=== PATIENT | male | born 1960 | race Caucasian/White ===

== ENCOUNTER 2022-10-23 10:09 | Observation (INO) | payer OTHER ==
--- NOTE | 2022-10-23 10:26 | ERPHSYRPT ---
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 Patient and his spouse state the patient has not hit his head in the recent past. Additional, independent history was obtained from the patient's spouse and the paramedics. Patient's about states that this morning, the patient woke up and things were normal. However, suddenly the patient fell and started having seizure-like activity that was generalized. Patient has never had anything like this before per his report or per the report of his spouse. Patient has been out of his hydrocodone and Xanax medication for at least 3 to 4 days. They are supposed to receive the medication today from his pharmacy. Patient denies illicit drug use. Patient denies alcohol use. Patient denies chest pain. He denies shortness of breath. He denies abdominal pain. He has not had any vomiting or diarrhea. Patient, at the time of this evaluation appears awake and alert. Patient has a history of hyperlipidemia, chronic left leg pain and has anxiety issues on Xanax daily Timing/Duration: today Severity: mild Character of Deficits: none Deficits: no difficulties Baseline/Normal Cognition: alert oriented x 3 Current Cognition: alert oriented x 3 Baseline Gait: walks w/o assistance Associated Symptoms: seizures, No confusion, No loss of consciousness Allergies/Adverse Reactions: Penicillins Allergy (Verified 10/23/22 10:13) Sulfa (Sulfonamide Antibiotics) Allergy (Verified 10/23/22 10:13) Home Medications: ALPRAZolam [Alprazolam] 1 tab PO CLARIFY 10/23/22 [History] Atorvastatin Calcium [Lipitor] 1 tab PO CLARIFY 10/23/22 [History] Hydrocodone/Acetaminophen [Hydrocodone-Acetamin 5-325 mg] 1 tab PO CLARIFY 10/23/22 [History] Travel Risk - International Travel Have you traveled outside of the country in past 3 weeks: No - Coronavirus Screening Are you exhibiting any of the following symptoms?: No Close contact with a COVID-19 positive Pt in past 14-21 Days: No - Review of Systems Constitutional: No Symptoms Eyes: No Symptoms Ears, Nose, & Throat: No Symptoms Respiratory: No Symptoms Cardiac: No Symptoms Abdominal/Gastrointestinal: No Symptoms Genitourinary Symptoms: No Symptoms Musculoskeletal: No Symptoms Skin: No Symptoms Neurological: Seizure, No Headache Psychological: No Symptoms Endocrine: No Symptoms Hematologic/Lymphatic: No Symptoms Immunological/Allergic: No Symptoms All Other Systems: Reviewed and Negative - Past Medical History Pertinent Past Medical History: Yes - Nursing Vital Signs Nursing Vital Signs: Initial Vital Signs Pulse Rate 83 10/23/22 10:11 Respiratory Rate 17 10/23/22 10:11 Blood Pressure 158/87 10/23/22 10:11 O2 Sat by Pulse Oximetry 94 L 10/23/22 10:11 Pain Scale Pain Intensity 0 - Jason Coma Scale Best Eye Response (Jason): (4) open spontaneously Best Verbal Response ([place]): (5) oriented Best Motor Response (Jason): (6) obeys commands [place] Total: 15 - Physical Exam General Appearance: no apparent distress, alert, anxiety, cachetic Eye Exam: bilateral eye: normal inspection, PERRL, EOMI Ears, Nose, Throat Exam: moist mucous membranes, other (Generalized poor dentition) Neck Exam: normal inspection, non-tender, supple, full range of motion Respiratory: normal breath sounds, lungs clear, respiratory distress, airway intact, No chest tenderness Cardiovascular: regular rate/rhythm, normal heart sounds, normal peripheral pulses Gastrointestinal: soft, normal bowel sounds, No tenderness Rectal Exam: not done Back Exam: normal inspection, normal range of motion, No CVA tenderness, No vertebral tenderness Extremity Exam: normal inspection, normal range of motion, pelvis stable Mental Status: alert, oriented x 3, cooperative desizing machine back tender Exam: normal hearing, normal speech, PERRL, tongue midline Coordination/Gait: normal finger to nose Motor/Sensory: no motor deficit, no sensory deficit Skin Exam: normal color, warm, dry SpO2 Interpretation: normal O2 Delivery: Room Air - Course Nursing assessment & vital signs reviewed: Yes EKG Interpreted by Me: RATE, Sinus Rhythm, NORMAL AXIS, NORMAL INTERVALS, NORMAL QRS, Non-specific ST Changes, Other (No comparison twelve-lead EKG. There is no acute ischemic changes on today's twelve-lead EKG.) Ordered Tests: Active Orders 24 hr Category Date Time Status Duty Engineer STAT Care 10/23/22 10:42 Active Clean Catch Urine Specimen STAT Care 10/23/22 10:41 Active EKG-ER Only STAT Care 10/23/22 10:41 Active IV Insertion STAT Care 10/23/22 10:41 Active Pulse Oximetry (ED) STAT Care 10/23/22 10:41 Active HEAD WITHOUT CONTRAST [CT] Stat Exams 10/23/22 10:42 Completed ACETAMINOPHEN Stat Lab 10/23/22 10:50 Completed CBC W DIFF Stat Lab 10/23/22 10:50 Completed CMP Stat Lab 10/23/22 10:50 Completed ETHYL ALCOHOL Stat Lab 10/23/22 10:50 Completed POTASSIUM, URINE RANDOM Stat Lab 10/23/22 11:19 Ordered SALICYLATE Stat Lab 10/23/22 10:50 Completed Sodium, Urine Stat Lab 10/23/22 11:18 Ordered UA W/RFX UR CULTURE Stat Lab 10/23/22 10:41 Ordered Urine Triage Profile Stat Lab 10/23/22 10:41 Ordered Transfer Order Routine Transfer 10/23/22 Ordered Medication Summary Generic Name Dose Route Start Last Admin Trade Name Freq PRN Reason Stop Dose Admin Sodium Chloride 1,000 mls @ 100 mls/hr 10/23/22 10:45 10/23/22 10:45 Sodium Chloride 0.9% 1000 Ml IV 11/22/22 10:44 100 mls/hr .Q10H TEETEE Administration Discontinued Medications Generic Name Dose Route Start Last Admin Trade Name Freq PRN Reason Stop Dose Admin Morphine Sulfate 2 mg 10/23/22 11:51 Morphine Sulfate 2 Mg/Ml Inj IV 10/23/22 11:52 STAT ONE Ondansetron HCl 4 mg 10/23/22 10:41 10/23/22 10:45 Ondansetron Hcl 4 Mg/2 Ml Vial IV 10/23/22 10:42 4 mg STAT ONE Administration Ondansetron HCl Confirm 10/23/22 10:44 Ondansetron Hcl 4 Mg/2 Ml Vial Administered 10/23/22 10:45 Dose 4 mg .ROUTE .STK-MED ONE Lab/Rad Data: Laboratory Result Diagrams 10/23/22 10:50 10/23/22 10:50 Laboratory Results 10/23/22 10/23/22 Range/Units 10:50 10:50 WBC 12.2 H (4.0-10.5) x10^3/uL RBC 4.63 (4.1-5.6) x10^6/uL Hgb 14.6 (12.5-18.0) g/dL Hct 40.5 L (42-50) % MCV 87.5 (78-100) fL MCH 31.5 (26-32) pg MCHC 36.0 (32-36) g/dL RDW 12.0 (11.5-14.0) % Plt Count 315 (150-450) x10^3/uL MPV 8.1 (7.5-11.0) fL Gran % 77.8 H (36.0-66.0) % Immature Gran % (Auto) 0.7 H (0.00-0.4) % Nucleat RBC Rel Count 0.0 (0.00-0.1) % Eos # (Auto) 0.11 (0-0.5) x10^3/uL Immature Gran # (Auto) 0.08 H (0.00-0.03) x10^3u/L Absolute Lymphs (auto) 1.66 (1.0-4.6) x10^3/uL Absolute Monos (auto) 0.83 (0.0-1.3) x10^3/uL Absolute Nucleated RBC 0.00 (0.00-0.01) x10^3u/L Lymphocytes % 13.6 L (24.0-44.0) % Monocytes % 6.8 (0.0-12.0) % Eosinophils % 0.9 (0.00-5.0) % Basophils % 0.2 (0.0-0.4) % Absolute Granulocytes 9.49 H (1.4-6.9) x10^3/uL Basophils # 0.03 (0-0.4) x10^3/uL Sodium 118 L* (137-145) mmol/L Potassium 3.4 L (3.5-5.1) mmol/L Chloride 84 L (98-107) mmol/L Carbon Dioxide 23 (22-30) mmol/L Anion Gap 14.6 (5-15) MEQ/L BUN 6 L (9-20) mg/dL Creatinine 0.52 L (0.66-1.25) mg/dL Estimated GFR > 60.0 ML/MIN Glucose 106 (74-106) mg/dL Calcium 8.1 L (8.4-10.2) mg/dL Total Bilirubin 0.70 (0.2-1.3) mg/dL AST 30 (17-59) U/L ALT 20 (0-50) U/L Alkaline Phosphatase 105 (38-126) U/L Serum Total Protein 6.4 (6.3-8.2) g/dL Albumin 3.7 (3.5-5.0) g/dL Salicylates < 1.0 L (2-20) mg/dL Acetaminophen < 10 L (10-30) ug/ml Ethyl Alcohol < 10 (0-10) mg/dL - Progress Progress: improved, re-examined Progress Note: 10/23/22 11:52 CT scan of the head without contrast shows a nonacute senile brain. This patient's medical issue is 1 of high complexity. Level of complexity in the work-up performed is based on review of the patient's past medical history, review of the patient's medication list, review of the patient's drug allergy list, history of present illness and physical findings on examination. The work-up performed includes CAT scan of the head without contrast, CBC, CMP, urinalysis, alcohol level, urine triage profile, acetaminophen level, salicylate level, twelve-lead EKG. I reviewed the results of the work-up including the impression of the radiology interpreted CT scan of the head. Patient has been out of his anxiety and pain medicine for 3 to 4 days. He had stopped these abruptly because he had no more medication. More importantly, his sodium is 118. I think all of these findings and issues contributed to his new onset seizure. I spoke with the telehospitalist, Dr. Guzman. He agrees the patient to be placed in observation and will undergo further evaluation and testing. I ordered a urine osmolality, urine potassium and urine sodium level. I will repeat labs in the morning and we will infuse normal saline solution and him. I will also provide him with as needed, low-dose Ativan and morphine intravenously to help treat his chronic pain and anxiety issues. Counseled pt/family regarding: lab results, diagnosis, need for follow-up, rad results Medical Desision Making - Independent Historian Additional History obtained from: Spouse - Discussion of managment Care discussed with:: hospitalist (Dr. Guzman) Reviewed:: Test results, Need for additional workup Agreed on:: Treatment plan, place in obs Will see patient: in hospital - Diagnostic Testing Diagnostic test were ordered, analyzed, and reviewed by me: Yes Radiological Interpretation: Reviewed by me, Teleradiologist Report - Risk of complications The pt has a high risk of morbidity or mortality based on: Decision regarding hospitilization or escalation of hosp level of care - Departure Departure Disposition: Observation Clinical Impression: New onset seizure, Hyponatremia Condition: Stable Critical Care Time: No Referrals: DOCTOR,NO FAMILY [Primary Care Provider] - Follow up/PCP as directed
[2022-10-23] MEDS ORDERED: Zofran 4 MG/2 ML VIAL IV ONE (10:41)
[2022-10-23] MEDS ORDERED: Sodium Chloride 0.9% 1000 ML 1,000 ML ONE (10:44)
[2022-10-23] MEDS ORDERED: Zofran 4 MG/2 ML VIAL ONE (10:44)
[2022-10-23] MEDS ORDERED: Sodium Chloride 0.9% 1000 ML 1,000 ML IV SCH ×2 (10:45→13:54)
[2022-10-23 10:57] LABS: Absolute Neutrophil Ct (ANC) 9.49 x10^3/uL (1.4-6.9); BASOPHIL % 0.2 % (0.0-0.4); Basophil (Absolute #) 0.03 x10^3/uL (0-0.4); Eosinophil % 0.9 % (0.00-5.0); Eosinophil (Absolute #) 0.11 x10^3/uL (0-0.5); Hematocrit 40.5 % (42-50); Hemoglobin 14.6 g/dL (12.5-18.0); IMMATURE GRAN # 0.08 x10^3u/L (0.00-0.03); IMMATURE GRAN % 0.7 % (0.00-0.4); Lymphocyte (Absolute #) 1.66 x10^3/uL (1.0-4.6); Lymphocytes % 13.6 % (24.0-44.0); Mean Cell Volume 87.5 fL (78-100); Mean Corpuscular Hemoglobin 31.5 pg (26-32); Mean Platelet Volume 8.1 fL (7.5-11.0); Monocyte (Absolute #) 0.83 x10^3/uL (0.0-1.3); Monocytes % 6.8 % (0.0-12.0); Neutrophil % 77.8 % (36.0-66.0); Platelet Count 315 x10^3/uL (150-450); Red Blood Count 4.63 x10^6/uL (4.1-5.6); White Blood Count 12.2 x10^3/uL (4.0-10.5)
[2022-10-23 11:10] LABS: ACETAMINOPHEN < 10 ug/ml (10-30); ALBUMIN 3.7 g/dL (3.5-5.0); ALKALINE PHOSPHATASE 105 U/L (38-126); ANION GAP 14.6 MEQ/L (5-15); BLOOD UREA NITROGEN 6 mg/dL (9-20); CHLORIDE 84 mmol/L (98-107); Calcium 8.1 mg/dL (8.4-10.2); Carbon Dioxide 23 mmol/L (22-30); Creatinine 1 0.52 mg/dL (0.66-1.25); EST GLOMERULAR FILTRATION RATE > 60.0 ML/MIN; ETHYL ALCOHOL < 10 mg/dL (0-10); Glucose 106 mg/dL (74-106); Potassium 3.4 mmol/L (3.5-5.1); SALICYLATE < 1.0 mg/dL (2-20); SGOT/AST 30 U/L (17-59); SGPT/ALT 20 U/L (0-50); Total Protein 6.4 g/dL (6.3-8.2)
[2022-10-23 11:17] LABS: SODIUM 118 mmol/L (137-145)
--- NOTE | 2022-10-23 11:34 | XRAY ---
Indication: New one since seizure. Multiple contiguous axial images obtained through the head without contrast. Comparison: None Age-appropriate global atrophy with minimal periventricular degenerative micro-ischemia bilaterally. No acute intracranial hemorrhage, abnormal extra-axial fluid collection, or mass effect. Fourth ventricle is midline without hydrocephalus. Bony calvarium intact. Visualized paranasal sinuses and mastoid air cells are clear. Impression: Nonacute senile brain.
[2022-10-23] MEDS ORDERED: MORPHINE SULFATE 2 MG INJ IV ONE (11:51)
[2022-10-23] MEDS ORDERED: MORPHINE SULFATE 2 MG INJ ONE (12:07)
[2022-10-23] MEDS ORDERED: MORPHINE SULFATE 4 MG INJ IV ONE (12:46)
[2022-10-23] MEDS ORDERED: MORPHINE SULFATE 4 MG INJ ONE (12:50)
[2022-10-23 13:25] LABS: Appearance Clear (Clear); Bacteria None Seen /HPF (None Seen); Bilirubin Negative (Negative); Blood Negative (Negative); Epithelial Cells None Seen /HPF (None Seen); Glucose, Urine 100 mg/dL (Negative); Hyaline Casts NONE SEEN /LPF (0-2); Ketones Trace (Negative); Leukocyte Esterase Negative (Negative); Nitrite Negative (Negative); Ph 6.5 (4.6-8.0); Protein,Urine Dip Negative (Negative); RBC 0-2 /HPF (0-5); WBC 0-2 /HPF (0-5)
[2022-10-23 13:28] LABS: ADD URINE CULTURE? NO (NO)
[2022-10-23 13:43] LABS: Amphetamine,Urine NEGATIVE (NEGATIVE); Barbiturate,Urine NEGATIVE (NEGATIVE); Benzodiazepine,Urine NEGATIVE (NEGATIVE); Cocaine,Urine NEGATIVE (NEGATIVE); Methadone,Urine NEGATIVE (NEGATIVE); Opiate,Urine POSITIVE (NEGATIVE); PCP,Urine NEGATIVE (NEGATIVE); THC,Urine NEGATIVE (NEGATIVE)
[2022-10-23] MEDS ORDERED: MORPHINE SULFATE 2 MG INJ IV PRN (13:54)
[2022-10-23] MEDS ORDERED: Zofran 4 MG/2 ML VIAL IV PRN (13:54)
[2022-10-23] MEDS ORDERED: Ativan 2 MG/1 ML VIAL IV PRN (13:54)
[2022-10-23] MEDS: TYLENOL 325 MG PO PRN (14:07)
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
[2022-10-24] MEDS: TYLENOL 325 MG PO PRN (00:46)
[2022-10-24 05:13] LABS: Absolute Neutrophil Ct (ANC) 7.07 x10^3/uL (1.4-6.9); BASOPHIL % 0.4 % (0.0-0.4); Basophil (Absolute #) 0.04 x10^3/uL (0-0.4); Eosinophil % 1.7 % (0.00-5.0); Eosinophil (Absolute #) 0.17 x10^3/uL (0-0.5); Hematocrit 38.5 % (42-50); Hemoglobin 13.6 g/dL (12.5-18.0); IMMATURE GRAN # 0.03 x10^3u/L (0.00-0.03); IMMATURE GRAN % 0.3 % (0.00-0.4); Lymphocyte (Absolute #) 2.11 x10^3/uL (1.0-4.6); Lymphocytes % 20.5 % (24.0-44.0); Mean Cell Volume 88.3 fL (78-100); Mean Corpuscular Hemoglobin 31.2 pg (26-32); Mean Corpuscular Hgb Concent. 35.3 g/dL (32-36); Mean Platelet Volume 8.5 fL (7.5-11.0); Monocyte (Absolute #) 0.87 x10^3/uL (0.0-1.3); Monocytes % 8.5 % (0.0-12.0); Neutrophil % 68.6 % (36.0-66.0); Platelet Count 289 x10^3/uL (150-450); Red Blood Count 4.36 x10^6/uL (4.1-5.6); Red Cell Distribution Width 12.6 % (11.5-14.0); White Blood Count 10.3 x10^3/uL (4.0-10.5)
[2022-10-24 05:38] LABS: Potassium 3.6 mmol/L (3.5-5.1)
[2022-10-24 05:44] LABS: ALBUMIN 3.1 g/dL (3.5-5.0); ALKALINE PHOSPHATASE 84 U/L (38-126); BLOOD UREA NITROGEN 8 mg/dL (9-20); CHLORIDE 95 mmol/L (98-107); Calcium 7.9 mg/dL (8.4-10.2); Carbon Dioxide 25 mmol/L (22-30); Creatinine 1 0.61 mg/dL (0.66-1.25); EST GLOMERULAR FILTRATION RATE > 60.0 ML/MIN; Glucose 95 mg/dL (74-106); NT PRO BNPII 441 pg/mL (<300); SGOT/AST 28 U/L (17-59); SGPT/ALT 15 U/L (0-50); SODIUM 127 mmol/L (137-145); Total Protein 5.7 g/dL (6.3-8.2)
[2022-10-24 05:59] LABS: ANION GAP 10.6 MEQ/L (5-15)
[2022-10-24] MEDS: Sodium Chloride 0.9% 1000 ML 1,000 ML IV SCH ×2 (08:53→17:59)
[2022-10-24] MEDS: HYDROCODONE-ACETAMIN 10-325 MG PO PRN ×2 (08:53→17:33)
[2022-10-24] MEDS ORDERED: LIPITOR 40MG PO SCH (10:00)
[2022-10-24] MEDS: XANAX 1 MG PO PRN ×2 (10:11→17:33)
[2022-10-24] MEDS: ZOCOR 20MG PO SCH (10:11)
--- NOTE | 2022-10-24 22:10 | PCM.NOTE ---
Date and Time: 10/24/222206 Subjective Assessment: No acute events overnight. noted that he was little bit more confused with his IV Ativan, but feels to be doing better with his p.o. Xanax. Overall, he is feeling better, and not having any further episodes of seizure activity. Of note, his saline was stopped overnight because of rapid rise of sodium. Objective Exam Comments: GENERAL: Sitting up in bed in no acute distress NEURO: Alert, oriented x3, normal affect. No focal weakness on exam. CV: Regular rate and rhythm, no murmurs, no edema PULM: Clear to auscultation bilaterally, no work of breathing ABD: Soft, nontender, nondistended OBJECTIVE DATA Vital Signs: Vital Signs - 24 hr Temp Pulse Resp BP Pulse Ox 10/24/22 20:00 97.3 F 77 18 143/56 94 L 10/24/22 16:00 98.2 F 71 16 105/55 95 10/24/22 12:00 97.3 F 60 17 83/55 95 10/24/22 07:42 97.1 F 69 18 125/63 92 L 10/24/22 04:00 97.1 F 110 H 16 125/77 97 10/23/22 23:32 98.4 F 78 16 130/75 92 L Pain Assessment - Last Documented Pain Intensity 5 Pain Scale Used 0-10 Pain Scale Intake and Output: Intake & Output 10/22/22 10/23/22 10/24/22 10/25/22 11:59 11:59 11:59 11:59 Intake Total 420 440 Output Total 300 Balance 120 440 Weight 46 kg 39.6 kg Lab Results: Lab Results-Last 24 Hours 10/24/22 10/24/22 10/24/22 Range/Units 04:47 04:47 14:10 WBC 10.3 (4.0-10.5) x10^3/uL RBC 4.36 (4.1-5.6) x10^6/uL Hgb 13.6 (12.5-18.0) g/dL Hct 38.5 L (42-50) % MCV 88.3 (78-100) fL MCH 31.2 (26-32) pg MCHC 35.3 (32-36) g/dL RDW 12.6 (11.5-14.0) % Plt Count 289 (150-450) x10^3/uL MPV 8.5 (7.5-11.0) fL Gran % 68.6 H (36.0-66.0) % Immature Gran % (Auto) 0.3 (0.00-0.4) % Nucleat RBC Rel Count 0.0 (0.00-0.1) % Eos # (Auto) 0.17 (0-0.5) x10^3/uL Immature Gran # (Auto) 0.03 (0.00-0.03) x10^3u/L Absolute Lymphs (auto) 2.11 (1.0-4.6) x10^3/uL Absolute Monos (auto) 0.87 (0.0-1.3) x10^3/uL Absolute Nucleated RBC 0.00 (0.00-0.01) x10^3u/L Lymphocytes % 20.5 L (24.0-44.0) % Monocytes % 8.5 (0.0-12.0) % Eosinophils % 1.7 (0.00-5.0) % Basophils % 0.4 (0.0-0.4) % Absolute Granulocytes 7.07 H (1.4-6.9) x10^3/uL Basophils # 0.04 (0-0.4) x10^3/uL Sodium 127 L 130 L (137-145) mmol/L Potassium 3.6 (3.5-5.1) mmol/L Chloride 95 L D (98-107) mmol/L Carbon Dioxide 25 (22-30) mmol/L Anion Gap 10.6 (5-15) MEQ/L BUN 8 L (9-20) mg/dL Creatinine 0.61 L (0.66-1.25) mg/dL Estimated GFR > 60.0 ML/MIN Glucose 95 (74-106) mg/dL Calcium 7.9 L (8.4-10.2) mg/dL Total Bilirubin 0.60 (0.2-1.3) mg/dL AST 28 (17-59) U/L ALT 15 (0-50) U/L Alkaline Phosphatase 84 (38-126) U/L NT-Pro-B Natriuret Pep 441 (<300) pg/mL Serum Total Protein 5.7 L (6.3-8.2) g/dL Albumin 3.1 L (3.5-5.0) g/dL Radiology Exams: Radiology Procedures Category Date Time Status HEAD WITHOUT CONTRAST [CT] Stat Exams 10/23/22 10:42 Completed Assessment/Plan (1) Hyponatremia Current Visit: Yes Status: Acute Assessment & Plan: 62-year-old man with history of anxiety, chronic leg pain, here with severe hyponatremia with acute seizure. ## Severe hyponatremia sodium 118 on arrival, with new onset seizure. Given normal saline initially, and sodium quickly shirlene to 125. Normal saline held, and slowed rise this morning into 127. It is now been more than 24 hours since arrival, and can restart normal saline for slow rise until tomorrow. No further neurologic deficits, no further seizure activity. Restart normal saline at 100 mL/h Follow-up urine osmolarity, current pending ## Seizure secondary to hyponatremia as above Continue PRN Ativan ## Chronic left leg pain pain control today Continue home [place] 10 CODE STATUS: Full code Prophylaxis: Short stay, encourage ambulation Diet: Regular Dispo: Likely home tomorrow if no further neurologic deficits and sodium is at least greater than 130. Code(s): E87.1 - HYPO-OSMOLALITY AND HYPONATREMIA (2) New onset seizure Current Visit: Yes Status: Acute Code(s): R56.9 - UNSPECIFIED CONVULSIONS Telemedicine Encounter - Telemedicine Encounter Telemedicine Encounter: The entirety of this encounter was performed via Telemedicine"
[2022-10-25] MEDS: Sodium Chloride 0.9% 1000 ML 1,000 ML IV SCH (04:00)
[2022-10-25 04:21] VITALS: O2SAT 94
[2022-10-25 05:16] LABS: Hematocrit 35.3 % (42-50); Hemoglobin 12.3 g/dL (12.5-18.0); Mean Cell Volume 93.4 fL (78-100); Mean Corpuscular Hemoglobin 32.5 pg (26-32); Mean Corpuscular Hgb Concent. 34.8 g/dL (32-36); Mean Platelet Volume 8.7 fL (7.5-11.0); Platelet Count 256 x10^3/uL (150-450); Red Blood Count 3.78 x10^6/uL (4.1-5.6); Red Cell Distribution Width 13.2 % (11.5-14.0); White Blood Count 9.1 x10^3/uL (4.0-10.5)
[2022-10-25 05:45] LABS: ANION GAP 5.1 MEQ/L (5-15); BLOOD UREA NITROGEN 11 mg/dL (9-20); CHLORIDE 102 mmol/L (98-107); Calcium 7.6 mg/dL (8.4-10.2); Carbon Dioxide 28 mmol/L (22-30); Creatinine 1 0.65 mg/dL (0.66-1.25); EST GLOMERULAR FILTRATION RATE > 60.0 ML/MIN; Glucose 103 mg/dL (74-106); Potassium 3.6 mmol/L (3.5-5.1); SODIUM 132 mmol/L (137-145)
[2022-10-25] MEDS: HYDROCODONE-ACETAMIN 10-325 MG PO PRN (05:57)
[2022-10-25 06:56] VITALS: BP 113/52; PULSE 50; RESP 16; TEMP 98.2
[2022-10-25] MEDS: ZOCOR 20MG PO SCH (09:33)
--- NOTE | 2022-10-25 10:04 | PCM.DS ---
Discharge Summary Date of Admission: 10/23/22 13:47 Date of Discharge: 10/25/2022 Admitting Physician: EDMOND FUENTES MD Consults: Consults on Case 10/23/22 13:54 Nutritional Consult ROUTINE Primary Care Provider: Santa Thakur Allergies Allergies Penicillins Allergy (Verified 10/23/22 14:36) Sulfa (Sulfonamide Antibiotics) Allergy (Verified 10/23/22 14:36) Hospital Summary - Hospital Course Hospital Course: 62-year-old man with history of anxiety, chronic leg pain, who presented after witnessed acute seizure by his . On admission, he was found to have severe hyponatremia of 118. Most recently, he had been outside in the heat, fishing all day, not drinking enough liquids, and appeared to have severe hypovolemia. Head CT had no focal structure abnormalities and patient had no prior history of seizures. He was put on IV normal saline for hypovolemic hyponatremia, with initial rapid correction. His saline was intermittently held and restarted for slow appropriate correction, and after 48 hours, his sodium had improved to 142. He had no further neurologic symptoms. Patient was encouraged to maintain fluid hydration whenever outside. Greater than 30 minutes spent arranging discharge. - Vitals & Intake/Output Vital Signs: Vital Signs Temperature 98.2 F 10/25/22 06:55 Pulse Rate 50 L 10/25/22 06:55 Respiratory Rate 16 10/25/22 06:55 Blood Pressure 113/52 10/25/22 06:55 O2 Sat by Pulse Oximetry 94 L 10/25/22 06:55 Intake & Output: Intake & Output 10/22/22 10/23/22 10/24/22 10/25/22 11:59 11:59 11:59 11:59 Intake Total 420 2669 Output Total 300 Balance 120 2669 Weight 46 kg 39.6 kg 88 kg - Lab Result Diagrams: 10/25/22 04:00 10/25/22 04:46 Lab Results-Last 24 Hrs: Lab Results-Last 24 Hours 10/24/22 10/25/22 10/25/22 Range/Units 14:10 04:00 04:46 WBC 9.1 (4.0-10.5) x10^3/uL RBC 3.78 L (4.1-5.6) x10^6/uL Hgb 12.3 L (12.5-18.0) g/dL Hct 35.3 L (42-50) % MCV 93.4 (78-100) fL MCH 32.5 H (26-32) pg MCHC 34.8 (32-36) g/dL RDW 13.2 (11.5-14.0) % Plt Count 256 (150-450) x10^3/uL MPV 8.7 (7.5-11.0) fL Sodium 130 L 132 L (137-145) mmol/L Potassium 3.6 (3.5-5.1) mmol/L Chloride 102 (98-107) mmol/L Carbon Dioxide 28 (22-30) mmol/L Anion Gap 5.1 (5-15) MEQ/L BUN 11 (9-20) mg/dL Creatinine 0.65 L (0.66-1.25) mg/dL Estimated GFR > 60.0 ML/MIN Glucose 103 (74-106) mg/dL Calcium 7.6 L (8.4-10.2) mg/dL - Radiology Exams Ordered Rad Exams-Entire Visit: Radiology Procedures Category Date Time Status HEAD WITHOUT CONTRAST [CT] Stat Exams 10/23/22 10:[address] head age-appropriate global atrophy with minimal periventricular degenerative microischemia bilaterally. No acute or cranial hemorrhage, abnormal extra-axial fluid collection, or mass effect. Discharge Exam Comments: GENERAL: Sitting up in bed in no acute distress NEURO: Alert, oriented x3, normal affect. No focal weakness on exam. CV: Regular rate and rhythm, no murmurs, no edema PULM: Clear to auscultation bilaterally, no work of breathing ABD: Soft, nontender, nondistended Final Diagnosis/Problem List - Final Discharge Diagnosis/Problem (1) Hyponatremia Current Visit: Yes Status: Acute Code(s): E87.1 - HYPO-OSMOLALITY AND HYPONATREMIA (2) New onset seizure Current Visit: Yes Status: Acute Code(s): R56.9 - UNSPECIFIED CONVULSIONS Telemedicine Encounter - Telemedicine Encounter Telemedicine Encounter: The entirety of this encounter was performed via Telemedicine" - Discharge Discharge Date: 10/25/22 Disposition: Home, Self-Care Condition: Good Prescriptions: Continue ALPRAZolam [Alprazolam] 1 mg PO Q6H PRN PRN PRN Reason: Anxiety Atorvastatin Calcium [Lipitor] 20 mg PO DAILY Hydrocodone/Acetaminophen [Hydrocodone-Acetamin 5-325 mg] 10 - 325 mg PO Q6H PRN PRN PRN Reason: Pain Instructions: Hyponatremia (DC) Follow up with: SANTA THAKUR MD [NON-STAFF PHY W/O PRIVILEGES] -
== END 2022-10-25 10:45 | disposition home or self-care (01) ==
LOC: ED 10:09 → MED SURG 13:47
PROVIDERS: ADMIT Internal Medicine; ATTEND Internal Medicine
DX: E87.1 Hypo-osmolality and hyponatremia (principal); R56.9 Unspecified convulsions; F41.9 Anxiety disorder, unspecified; E78.5 Hyperlipidemia, unspecified; M79.605 Pain in left leg; Z79.899 Other long term (current) drug therapy; Z20.828 Contact with and (suspected) exposure to other viral communicable diseases; Z72.0 Tobacco use
CPT/HCPCS: 36000; 36415; 70450; 80048; 80053; 80143; 80179; 80307; 81001; 82077; 83880; 83935; 84133; 84295; 84300; 85025; 85027; 93005; 93041; 94760; 96374; 96375; 96376; 99285; Q3014; 93268; J2270; J2405; A9270-GY; G0378

== ENCOUNTER 2023-03-15 14:30 | Emergency (ER) | payer OTHER ==
[2023-03-15 14:55] VITALS: BP 174/91; PULSE 90; RESP 16; TEMP 97.6; O2SAT 98
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
[2023-03-15] MEDS ORDERED: Rocephin 1000 MG INJ IM ONE (15:55)
[2023-03-15] MEDS ORDERED: solu-MEDROL 125 MG, Sterile H2O 10 ml 2 ML IM ONE ×2 (15:55)
[2023-03-15] MEDS ORDERED: Rocephin 1000 MG INJ ONE (16:30)
[2023-03-15] MEDS ORDERED: solu-MEDROL ONE (16:30)
[2023-03-15] MEDS ORDERED: XYLOCAINE 1% HCL 20 ML MDV ONE (16:30)
== END 2023-03-15 16:47 | disposition home or self-care (01) ==
LOC: ED 14:30
DX: L03.113 Cellulitis of right upper limb (principal); E78.5 Hyperlipidemia, unspecified; Z79.52 Long term (current) use of systemic steroids; Z79.899 Other long term (current) drug therapy; Z72.0 Tobacco use
CPT/HCPCS: 96372; 99283; J0696; J2930